=== PATIENT | male | born 1980 | race Two or more races ===

== ENCOUNTER 2020-01-05 14:22 | Inpatient (IN) | payer MEDICAID, OTHER ==
[~2020-01-05] VITALS: Ht 180.3 cm; Wt 121.0 kg
[2020-01-05] MEDS ORDERED: HYDROmorphone HCL 2 MG/ML VL IV ONE (15:30)
[2020-01-05] MEDS ORDERED: ONDANSETRON HCL 4 MG/2 ML VIAL IV ONE (15:30)
[2020-01-05] MEDS ORDERED: ETOMIDATE (2MG/ML) 20ML VIAL IV ONE (16:00)
--- NOTE | 2020-01-05 19:35 | NUR ---
MS admit from ER MARCELLE,PAWEL admitted to tele/MS after SBAR received. Patient oriented to ISABEL DESIR, RN primary RN, unit, room, bed, and unit policies regarding patient care and visiting hours. Patient weighed by bed scale and encouraged to call for assistance as needed. All questions and concerns addressed, patient verbalized understanding. Note: Pt has a L lower leg splint.
--- NOTE | 2020-01-05 20:35 | NUR ---
Pain Patient reports pain 10 out of 10. Physician paged.
--- NOTE | 2020-01-05 20:40 | NUR ---
Physician called back. New order received, verified, and read back. Will be implemented as ordered.
[2020-01-05] MEDS ORDERED: MORPHINE SULF INJ 2 MG/ML SYRINGE 1ML IV PRN ×2 (20:45→21:45)
--- NOTE | 2020-01-05 21:16 | NUR ---
Pain reassessment Pt report no changed in pain level and requesting to talk to a doctor. Will notify the physician.
[2020-01-05 21:20] LABS: Basophils # (auto) 0.1 10 ^3/uL (0-0.2); Basophils % (auto) 0.3 % (0.0-2.0); Eosinophils # (auto) 0.1 10 ^3/uL (0-0.8); Eosinophils % (auto) 0.4 % (0.0-7.0); Hematocrit 39.2 % (41.0-53.0); Hemoglobin 13.3 g/dL (13.5-17.5); Lymphocytes # (auto) 3.8 10 ^3/uL (0.4-5.4); Lymphocytes % (auto) 18.9 % (10.0-50.0); Mean Corpuscular Hemoglobin 29.1 pg (28.0-32.0); Mean Corpuscular Hgb Conc. 33.8 g/dL (32.0-36.0); Monocytes # (auto) 1.8 10 ^3/uL (0-1.3); Monocytes % (auto) 9.1 % (0.0-12.0); Neutrophils # (auto) 14.4 10 ^3/uL (1.6-8.6); Neutrophils % (auto) 71.3 % (37.0-80.0); Platelet Count (auto) 407 10^3/uL (140-450); Red Blood Cells 4.56 10^6/uL (4.5-5.90); Red Cell Distribution Width 14.8 % (11.8-14.3); White Blood Cell 20.2 10^3/uL (4.4-10.8)
[2020-01-05 21:25] LABS: Urine Bacteria NONE SEEN /hpf (None Seen); Urine Blood Negative /uL (Negative); Urine Mucus FEW (None Seen); Urine Specific Gravity 1.028 (1.001-1.035); Urine WBC 1 /hpf (0 - 3)
[2020-01-05 21:35] LABS: INR 1.04 (0.9-1.15); Partial Thromboplastin Time 28.5 sec (23.0-31.2)
[2020-01-05 21:38] LABS: Albumin 3.3 g/dL (3.4-5.0); Calcium 8.3 mg/dL (8.5-10.1); Potassium 3.9 mmol/L (3.5-5.1)
[2020-01-05 21:39] LABS: Amphetamine Screen, Urine NEGATIVE (NEGATIVE); Barbiturate Scree,Urine NEGATIVE (NEGATIVE); Benzodiazephine Screen, Urine NEGATIVE (NEGATIVE); Cannabinoid Screen, Urine POSITIVE (NEGATIVE); Cocaine Screen, Urine NEGATIVE (NEGATIVE); Opiate Scree,Urine NEGATIVE (NEGATIVE); Phencyclidine Screen, Urine NEGATIVE (NEGATIVE)
[2020-01-05 21:41] LABS: BUN/Creatinine Ratio 17.4; Bilirubin, Total 0.3 mg/dL (0.2-1.0); Total Protein 6.9 g/dL (6.4-8.2)
[2020-01-05] MEDS: HYDROmorphone HCL 2 MG/ML VL IV PRN (21:47)
[2020-01-05 22:45] VITALS: BP 126/74
[2020-01-05 22:50] VITALS: BP 126/74
[2020-01-06] MEDS ORDERED: INFLUENZA QUAD 2020-2021 0.5 ML SYRG IM ONE (02:15)
[2020-01-06] MEDS: MORPHINE SULF INJ 2 MG/ML SYRINGE 1ML IV PRN (02:30)
[2020-01-06] MEDS: HYDROmorphone HCL 2 MG/ML VL IV PRN ×3 (03:33→18:30)
[2020-01-06 05:09] VITALS: BP 111/63
[2020-01-06 09:00] VITALS: BP 119/72
--- NOTE | 2020-01-06 10:16 | NUR ---
BECCA scherer collected and walked down to lab as per protocol
[2020-01-06] MEDS ORDERED: ROPIVACAINE 0.5% (5MG/ML) 20ML AMPULE IJ ONE ×2 (10:27→13:41)
[2020-01-06] MEDS ORDERED: NEOMYCIN-BACITRACIN-POLYM 15GM TOP OINT TOP ONE (10:31)
--- NOTE | 2020-01-06 11:27 | NUR ---
Patient taken to PRE-OP via bed on room air. No s/s of distress/pain at this time. AGATHA Restrepo at bed side.
[2020-01-06] MEDS ORDERED: ceFAZolin 1GM/50ML 50 ML IV ONE ×2 (11:31→11:45)
[2020-01-06] MEDS ORDERED: HYDROmorphone HCL 2 MG/ML VL ONE (11:53)
[2020-01-06] MEDS ORDERED: MIDAZOLAM HCL 1MG/1ML-2 ML VIAL ONE (11:53)
[2020-01-06] MEDS ORDERED: fentaNYL CITRATE 100 MCG/2 ML VL ONE (11:53)
[2020-01-06] MEDS ORDERED: fentaNYL CITRATE 5 ML ONE (11:53)
[2020-01-06] MEDS ORDERED: SUCCINYLCHOLINE CHLORIDE 20 MG/ML 10ML VIAL IV ONE (11:54)
[2020-01-06] MEDS ORDERED: DexAMETHasone SOD PHOS 10MG/1ML VIAL INJ IV ONE (12:01)
[2020-01-06] MEDS ORDERED: METOCLOPRAMIDE HCL 5MG/ml INJ 2ml VIAL IV ONE (12:01)
[2020-01-06] MEDS ORDERED: PROPOFOL 10 MG/ML 20 ML IV ONE (12:05)
--- NOTE | 2020-01-06 13:00 | NUR ---
PATIENT WAS OFF UNIT FOR PROCEDURE DURING AFTERNOON VITALS ROUNDS.
[2020-01-06] MEDS ORDERED: METOCLOPRAMIDE HCL 5MG/ml INJ 2ml VIAL IV PRN (14:15)
[2020-01-06] MEDS ORDERED: ONDANSETRON HCL 4 MG/2 ML VIAL IV PRN ×2 (14:15→15:15)
[2020-01-06] MEDS ORDERED: LABETALOL HCL 5 MG/ML 4ML SYRINGE IV PRN (14:15)
[2020-01-06] MEDS ORDERED: ePHEDrine SULFATE 50 MG/ML AMP IV PRN (14:15)
[2020-01-06] MEDS ORDERED: MORPHINE SULFATE 4 MG/ML SYR/VIAL IV PRN (14:15)
[2020-01-06] MEDS ORDERED: MIDAZOLAM HCL 1MG/1ML-2 ML VIAL IV PRN (14:15)
[2020-01-06] MEDS ORDERED: HYDROmorphone HCL 2 MG/ML VL IV PRN (14:15)
--- NOTE | 2020-01-06 14:48 | NUR ---
Patient back in room s/p surgical procedure with Dr. Rachel. See operative record for full report. Patient on room air, vs wnl, denies pain or discomfort at this time. SOFT CAST in place on left leg, with cap refill <3 seconds, sensation intact.
--- NOTE | 2020-01-06 15:10 | NUR ---
[facility] [employer] Hospitalist Agustina paged for diet order. Awaiting call back.
--- NOTE | 2020-01-06 16:20 | NUR ---
Attending MD paged for diet order. Awaiting call back.
[2020-01-06 17:00] VITALS: BP 151/89
[2020-01-06 18:00] VITALS: BP 135/72
--- NOTE | 2020-01-06 19:25 | NUR ---
Opening Shift Note Assumed care of patient. Pt is awake, alert, and oriented X 4. No S/S of respiratory distress. Respirations are regular and non-labored. L. leg elevated. Patient denies pain at this time. Bed locked in lowest position, side rails up x 2, call light is within reach. Pt instructed on POC and to call for assistance as needed. Will continue to monitor for changes Q1hr and PRN.
[2020-01-06 20:00] VITALS: BP 141/78
[2020-01-06 22:00] VITALS: BP 141/78
--- NOTE | 2020-01-07 00:30 | NUR ---
IV removal Patient complains on discomfort at insertion site and requests to D/C the current IV. IV DC'd with clean sterile technique, catheter fully intact. Pressure dressing applied to site. Patient tolerated well. New IV access obtained via sterile technique by inserting 22 gauge catheter at R. hand. IV secured properly. No trauma to site. Patient tolerated well.
[2020-01-07] MEDS: HYDROmorphone HCL 2 MG/ML VL IV PRN ×4 (00:37→17:54)
[2020-01-07 05:00] VITALS: BP 129/70
[2020-01-07 05:28] LABS: Basophils # (auto) 0.1 10 ^3/uL (0-0.2); Basophils % (auto) 0.3 % (0.0-2.0); Eosinophils # (auto) 0 10 ^3/uL (0-0.8); Hematocrit 42.8 % (41.0-53.0); Hemoglobin 13.9 g/dL (13.5-17.5); Mean Corpuscular Hemoglobin 28.4 pg (28.0-32.0); Mean Corpuscular Hgb Conc. 32.6 g/dL (32.0-36.0); Mean Corpuscular Volume 87.3 fL (80.0-100.0); Monocytes # (auto) 2.5 10 ^3/uL (0-1.3); Monocytes % (auto) 10.7 % (0.0-12.0); Neutrophils # (auto) 17.4 10 ^3/uL (1.6-8.6); Nucleated Red Blood Cells % 0.1 %; Platelet Count (auto) 420 10^3/uL (140-450); Red Cell Distribution Width 14.6 % (11.8-14.3); White Blood Cell 22.9 10^3/uL (4.4-10.8)
[2020-01-07 06:16] LABS: Chloride 106 mmol/L (98-107); Potassium 3.8 mmol/L (3.5-5.1); Sodium 136 mmol/L (136-145)
[2020-01-07 06:20] LABS: Anion Gap 7 (5-15); BUN/Creatinine Ratio 9.3; Blood Urea Nitrogen 7 mg/dL (7-18); Calcium 9.3 mg/dL (8.5-10.1); Carbon Dioxide 23 mmol/L (21-32); GFR African American 148 mL/min; GFR Non-African American 123 mL/min; Glucose 104 mg/dL (74-106)
--- NOTE | 2020-01-07 07:10 | NUR ---
ASSUMED CARE OF PATIENT ALERT AND AWAKE. RESPIRATIONS EVEN AND UNLABORED. CONTACT PRECAUTIONS IN PLACE AT THIS TIME. UPDATED PATIENT ON POC. NO SIGNS OF DISTRESS AT THIS TIME. BED LOCKED IN LOWEST POSITION, HOB ELEVATED AT LEAST 30 DEGREES, SIDE RAILS UP X 2 AND CALL LIGHT IS WITHIN REACH. Addendum: 01/07/20 at 0747 by ADELSO HEATH RN RN CONTACT PRECAUTIONS NOT IN PLACE. PATIENT IS ON [facility] AT THIS TIME.
[2020-01-07 09:00] VITALS: BP 137/84
--- NOTE | 2020-01-07 12:36 | NUR ---
DR VAUGHAN' OFFICE CALLED. LEFT MESSAGE REGARDING IF THIS PATIENT IS CLEARED FOR DISCHARGE. AWAITING CALL BACK. CONTINUE CARE.
[2020-01-07 13:00] VITALS: BP 126/68
--- NOTE | 2020-01-07 13:32 | NUR ---
DR. VAUGHAN CALLED BACK. VERBALIZED THAT THIS PATIENT CAN BE DISCHARGED AND THAT HE NEEDS ORAL ANTIBIOTICS FOR 10 DAYS.
--- NOTE | 2020-01-07 13:40 | NUR ---
DR FERNANDES PAGED REGARDING PATIENT'S DISCHARGE. AWAITING CALL BACK. CONTINUE CARE.
--- NOTE | 2020-01-07 13:41 | NUR ---
DR FERNANDES CALLED BACK. SHE VERBALIZED THAT SHE DOES NOT FEEL COMFORTABLE DISCHARGING THIS PATIENT AT THIS TIME DUE TO INCREASED WHITE BLOOD CELL COUNT. SHE VERBALIZED THAT SHE WILL PUT IN ORDERS FOR BLOOD CULTURE. CONTINUE CARE.
[2020-01-07] MEDS ORDERED: cefTRIAXone 1GM/50ML D5W 50 ML IV ONE (13:45)
[2020-01-07] MEDS ORDERED: DOXYCYCLINE 100 MG TAB/CAP PO ONE (13:45)
[2020-01-07] MEDS ORDERED: ENOXAPARIN SOD 40 MG/0.4 ML SYRINGE SC ONE (13:45)
[2020-01-07 17:00] VITALS: BP 125/83
--- NOTE | 2020-01-07 19:20 | NUR ---
ENDORSED CARE TO NOC SHIFT RN
--- NOTE | 2020-01-07 19:30 | NUR ---
Opening Shift Note Assumed care of patient, awake and alert. No S/S of distress/SOB. Instructed on POC and to call for assist PRN, will continue to monitor for changes Q1hr and PRN. Bed in lowest position and call light within reach.
[2020-01-07 20:00] VITALS: BP 127/82
[2020-01-07 22:00] VITALS: BP 127/82
[2020-01-07] MEDS: DOXYCYCLINE 100 MG TAB/CAP PO SCH (22:01)
[2020-01-07] MEDS: MORPHINE SULF INJ 2 MG/ML SYRINGE 1ML IV PRN (22:11)
[2020-01-08] MEDS: HYDROmorphone HCL 2 MG/ML VL IV PRN ×4 (00:19→18:27)
[2020-01-08] MEDS: MORPHINE SULF INJ 2 MG/ML SYRINGE 1ML IV PRN ×4 (03:06→20:57)
[2020-01-08 05:00] VITALS: BP 126/79
[2020-01-08 06:09] LABS: Basophils # (auto) 0.1 10 ^3/uL (0-0.2); Basophils % (auto) 0.3 % (0.0-2.0); Eosinophils # (auto) 0.1 10 ^3/uL (0-0.8); Eosinophils % (auto) 0.3 % (0.0-7.0); Hematocrit 39.2 % (41.0-53.0); Hemoglobin 13.1 g/dL (13.5-17.5); Lymphocytes # (auto) 2.8 10 ^3/uL (0.4-5.4); Lymphocytes % (auto) 16.5 % (10.0-50.0); Mean Corpuscular Hemoglobin 28.8 pg (28.0-32.0); Mean Corpuscular Hgb Conc. 33.3 g/dL (32.0-36.0); Mean Corpuscular Volume 86.5 fL (80.0-100.0); Monocytes # (auto) 2.5 10 ^3/uL (0-1.3); Monocytes % (auto) 14.5 % (0.0-12.0); Neutrophils # (auto) 11.8 10 ^3/uL (1.6-8.6); Neutrophils % (auto) 68.4 % (37.0-80.0); Nucleated Red Blood Cells % 0.1 %; Platelet Count (auto) 416 10^3/uL (140-450); Red Blood Cells 4.54 10^6/uL (4.5-5.90); Red Cell Distribution Width 14.5 % (11.8-14.3); White Blood Cell 17.2 10^3/uL (4.4-10.8)
--- NOTE | 2020-01-08 07:19 | NUR ---
ASSUMED CARE OF PATIENT ALERT AND AWAKE. RESPIRATIONS EVEN AND UNLABORED. UPDATED PATIENT ON POC. NO SIGNS OF DISTRESS AT THIS TIME. BED LOCKED IN LOWEST POSITION, HOB ELEVATED AT LEAST 30 DEGREES, SIDE RAILS UP X 2 AND CALL LIGHT IS WITHIN REACH.
[2020-01-08 09:00] VITALS: BP 132/83
[2020-01-08] MEDS: cefTRIAXone 1GM/50ML D5W 50 ML IV SCH (09:15)
[2020-01-08] MEDS: DOXYCYCLINE 100 MG TAB/CAP PO SCH ×2 (09:15→22:10)
[2020-01-08] MEDS: ENOXAPARIN SOD 40 MG/0.4 ML SYRINGE SC SCH (09:22)
--- NOTE | 2020-01-08 10:46 | NUR ---
MD ROUNDS WITH DR FERNANDES. ORDERS RECEIVED FOR PT EVALUATION AND INSTRUCTED TO FIND OUT FROM PT IF THIS PATIENT MAY HAVE A WALKER.
[2020-01-08 12:30] VITALS: BP 115/73
[2020-01-08 17:01] VITALS: BP 137/80
--- NOTE | 2020-01-08 19:17 | NUR ---
ENDORSED CARE TO NOC SHIFT RN
--- NOTE | 2020-01-08 19:25 | NUR ---
Opening Shift Note Received report from Uday SNIDER. Assumed care of patient, awake and alert. No S/S of distress/SOB or pain. Instructed on POC and to call for assist PRN, will continue to monitor for changes Q1hr and PRN.
[2020-01-08] MEDS ORDERED: TEMAZEPAM 15 MG CAP PO PRN (20:45)
[2020-01-08 21:32] VITALS: BP 128/77
[2020-01-09] MEDS: HYDROmorphone HCL 2 MG/ML VL IV PRN ×2 (00:20→06:16)
[2020-01-09] MEDS: MORPHINE SULF INJ 2 MG/ML SYRINGE 1ML IV PRN ×2 (03:54→09:33)
[2020-01-09 05:00] VITALS: BP 135/79
--- NOTE | 2020-01-09 06:45 | NUR ---
Bleeding on L lateral ankle noted, reinforced dressing with Kerlix.
--- NOTE | 2020-01-09 07:45 | NUR ---
Opening Shift Note Assumed care of patient, awake and alert. No S/S of distress/SOB or pain. Instructed on POC and to call for assist PRN, will continue to monitor for changes Q1hr and PRN. Fall precautions in place per safety protocol.
[2020-01-09 09:24] VITALS: BP 143/97
[2020-01-09] MEDS: cefTRIAXone 1GM/50ML D5W 50 ML IV SCH (09:32)
[2020-01-09] MEDS: ENOXAPARIN SOD 40 MG/0.4 ML SYRINGE SC SCH (09:32)
[2020-01-09] MEDS: DOXYCYCLINE 100 MG TAB/CAP PO SCH (09:32)
--- NOTE | 2020-01-09 09:48 | NUR ---
PATIENT REPORTS THAT HE IS WALKING FINE WITH FWW NWB LLE. NO FURTHER P.T. INTERVENTION IS NEEDED. PATIENT IS REQUESTING A KNEE SCOOTER PENDING MD APPROVAL.
[2020-01-09 10:45] LABS: Basophils # (auto) 0.1 10 ^3/uL (0-0.2); Basophils % (auto) 0.3 % (0.0-2.0); Eosinophils # (auto) 0.1 10 ^3/uL (0-0.8); Eosinophils % (auto) 0.9 % (0.0-7.0); Hematocrit 41.5 % (41.0-53.0); Hemoglobin 13.6 g/dL (13.5-17.5); Lymphocytes # (auto) 2.8 10 ^3/uL (0.4-5.4); Lymphocytes % (auto) 17.6 % (10.0-50.0); Mean Corpuscular Hemoglobin 28.5 pg (28.0-32.0); Mean Corpuscular Hgb Conc. 32.8 g/dL (32.0-36.0); Mean Corpuscular Volume 86.9 fL (80.0-100.0); Monocytes # (auto) 2.1 10 ^3/uL (0-1.3); Monocytes % (auto) 13.1 % (0.0-12.0); Neutrophils # (auto) 10.9 10 ^3/uL (1.6-8.6); Neutrophils % (auto) 68.1 % (37.0-80.0); Platelet Count (auto) 434 10^3/uL (140-450); Red Blood Cells 4.78 10^6/uL (4.5-5.90); Red Cell Distribution Width 14.9 % (11.8-14.3)
[2020-01-09] MEDS ORDERED: DOXY-286 PO (11:16)
[2020-01-09] MEDS ORDERED: LEVO500T21 PO (11:21)
--- NOTE | 2020-01-09 11:28 | NUR ---
D/C planning Per social service consult for knee scooter or walker. Patient health plan is only [employer] and it does not cover medical equipment. [employer] only covers hospital stay. Will inform bedside nurse.
[2020-01-09 13:00] VITALS: BP 129/71
--- NOTE | 2020-01-09 14:20 | NUR ---
Discharge instructions given as ordered. Encourage to follow up with PMD as instructed. All questions and concerns addressed. Patient verbalized understanding. Medication reconciliation form completed and copy given to patient. Patient refused Flu Vaccine upon discharged. IV removed with catheter intact, pressure dressing applied. Patient taken to vehicle via wheelchair with all personal belongings, accompanied by staff. No distress noted at time of departure.
--- NOTE | 2020-01-09 16:12 | NUR ---
Assessment Patient is a 39-year-old male, who is alert and oriented. Patient cognitive abilities are intact. Patient states that he can do all ADLs and ambulate independently prior to admission to [facility]. Patient stated that he is employed. Patient stated that he lives with his (Luciana [phone]) and children. Patient states that he will return home post discharge and his will provide transportation post discharge. Patient states that his diagnosis is a broken ankle and patient is requesting a walker post discharge. Patient stated that his is his support system. Patient that is receptive on receiving Advance Directive forms to read over with his . Discharge planning: SW will request a front wheel walker for patient post discharge. Patient has no post discharge needs to identify at this moment. Addendum: 01/09/20 at 1612 by ANN SHAW Amended: Links added.
== END 2020-01-09 14:20 | disposition home or self-care (01) | DRG 313 ==
LOC: EDBD 14:22 → ER 14:22 → OVERFLOW 14:23 → WEST WING 19:35
PROVIDERS: ADMIT Internal Medicine; ATTEND Internal Medicine
PROC: 0QSH04Z Reposition Left Tibia with Internal Fixation Device, Open Approach (ICD-10-PCS; 2020-01-06)
PROC: 0QSK04Z Reposition Left Fibula with Internal Fixation Device, Open Approach (ICD-10-PCS; principal; 2020-01-06 12:02)
DX: S82.852A Displaced trimalleolar fracture of left lower leg, initial encounter for closed fracture (principal); S82.462A Displaced segmental fracture of shaft of left fibula, initial encounter for closed fracture; E66.9 Obesity, unspecified; L05.91 Pilonidal cyst without abscess; R65.10 Systemic inflammatory response syndrome (SIRS) of non-infectious origin without acute organ dysfunction; Z68.37 Body mass index [BMI] 37.0-37.9, adult; F12.10 Cannabis abuse, uncomplicated; F17.210 Nicotine dependence, cigarettes, uncomplicated; W18.30XA Fall on same level, unspecified, initial encounter; Y93.89 Activity, other specified; Y92.009 Unspecified place in unspecified non-institutional (private) residence as the place of occurrence of the external cause; Z82.49 Family history of ischemic heart disease and other diseases of the circulatory system; Z90.49 Acquired absence of other specified parts of digestive tract; Z20.828 Contact with and (suspected) exposure to other viral communicable diseases
CPT/HCPCS: 36415; 71045; 73600; 73630; 80048; 80053; 80307; 81001; 85025; 85610; 85730; 86850; 86900; 86901; 87040; 87426; 96374; 96375; G0378; J0330; J0690; J0696; J1100; J2250; J2405; J2704

== ENCOUNTER 2020-06-03 21:47 | Emergency (ER) | payer MEDICAID ==
[~2020-06-03] VITALS: Ht 180.3 cm; Wt 122.5 kg
[~2020-06-03 21:47] MED LIST: LEVO500T31 PO
[2020-06-03] MEDS ORDERED: ONDANSETRON HCL 4 MG/2 ML VIAL IV ONE (22:30)
[2020-06-03] MEDS ORDERED: SODIUM CHLORIDE 0.9% 1,000 ML IV ONE (22:30)
[2020-06-03 23:10] LABS: Basophils # (auto) 0 10 ^3/uL (0-0.2); Basophils % (auto) 0.3 % (0.0-2.0); Eosinophils # (auto) 0 10 ^3/uL (0-0.8); Hemoglobin 14.8 g/dL (13.5-17.5); Lymphocytes # (auto) 1.7 10 ^3/uL (0.4-5.4); Lymphocytes % (auto) 9.9 % (10.0-50.0); Mean Corpuscular Hgb Conc. 34.4 g/dL (32.0-36.0); Mean Corpuscular Volume 84.3 fL (80.0-100.0); Monocytes # (auto) 0.5 10 ^3/uL (0-1.3); Monocytes % (auto) 2.7 % (0.0-12.0); Neutrophils # (auto) 15.4 10 ^3/uL (1.6-8.6); Neutrophils % (auto) 87.1 % (37.0-80.0); Nucleated Red Blood Cells % 0.2 %; Platelet Count (auto) 459 10^3/uL (140-450); Red Cell Distribution Width 15.4 % (11.8-14.3); White Blood Cell 17.6 10^3/uL (4.4-10.8)
[2020-06-03] MEDS ORDERED: metroNIDAZOLE 500MG/100ML 100 ML IV ONE (23:30)
[2020-06-03] MEDS ORDERED: PIPERACILLIN-TAZOB 3.375GM 100 ML IV ONE (23:30)
[2020-06-03 23:38] LABS: Albumin 4.4 g/dL (3.4-5.0); BUN/Creatinine Ratio 16.5; Calcium 9.6 mg/dL (8.5-10.1); Potassium 3.4 mmol/L (3.5-5.1)
[2020-06-03 23:41] LABS: Bilirubin, Total 0.6 mg/dL (0.2-1.0); Total Protein 8.8 g/dL (6.4-8.2)
[2020-06-04 03:00] VITALS: BP 121/56
== END 2020-06-04 03:30 | disposition home or self-care (01) ==
LOC: ER 21:48
DX: K52.89 Other specified noninfective gastroenteritis and colitis (principal); F17.210 Nicotine dependence, cigarettes, uncomplicated; Z90.49 Acquired absence of other specified parts of digestive tract
CPT/HCPCS: 36415; 71045; 74176; 80053; 82150; 83605; 83690; 84484; 85025; 87040; 93005; 96361; 96365; 96367; 96375; 99285; J2405; J2543; J3490